=== PATIENT | male | born 1970 ===

== ENCOUNTER 2022-05-08 17:30 | Outpatient (CLI) | payer BC | END 2022-05-08 17:31 | disposition home or self-care (01) | LOC: SLEEPLAB 17:30 | PROVIDERS: ATTEND Family Medicine | DX: G47.33 Obstructive sleep apnea (adult) (pediatric) (principal); G47.10 Hypersomnia, unspecified; F41.9 Anxiety disorder, unspecified; I10 Essential (primary) hypertension; R09.89 Other specified symptoms and signs involving the circulatory and respiratory systems; F32.A Depression, unspecified; F41.0 Panic disorder [episodic paroxysmal anxiety]; R53.82 Chronic fatigue, unspecified; E78.2 Mixed hyperlipidemia; Z79.890 Hormone replacement therapy | CPT/HCPCS: 95800 ==